=== PATIENT | male | born 1990 | race Two or more races ===

== ENCOUNTER 2022-12-09 09:44 | Outpatient (AMB) | payer OTHER, SELFPAY ==
[2022-12-09 09:53] VITALS: BP 118/78; PULSE 80; O2SAT 98; BMI 32.2
--- NOTE | 2022-12-09 09:53 | MHC.PC.OV ---
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 He also states he has tennis elbow in right arm. 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 [facility] [place] Last office visit/CPE: >5 yrs Acute issue(s): Allergies, Occassional cough, Dry Skin, Tennis Elbow R arm PMHx: Allergies, Mild intermittent Asthma. Infant hernia. SurgHx: Hernia repair FHx: Mom: DM, Allergies. Dad DM. pGM Breast CA. mGF: Cancer unknown source SocHx: Nonsmoker. EtOH 2-4 x a month but 10 drinks at a time. No drugs. [facility] Surgical History (Updated 12/09/22 @ 10:01 by Chantell Lee CMA) History of hernia surgery S/P tonsillectomy [place] teeth extracted Family History (Updated 12/09/22 @ 10:06 by Chantell Lee CMA) Father Diabetes Mother Diabetes Maternal Grandfather Diabetes Advanced dementia Alzheimer disease Mental health disorder Maternal Grandmother Advanced dementia Mental health disorder Paternal Grandmother Cancer Mental health disorder Paternal Grandfather Advanced dementia Alzheimer disease Cancer Mental health disorder Social History (Updated 12/09/22 @ 10:09 by Chantell Lee CMA) Household Members: None Housing: Apartment Alcohol intake: current Patient Tobacco Use Status: Never used Tobacco e-Cigarette/Vaping Use: Never Used Use of substances other than those prescribed or required for medical reasons: No Have you been hit, kicked, punched, or otherwise hurt by someone within the past year? 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 Cognitive needs: No Hearing needs: No Vision needs: Yes (patient wearing glasses) Questionnaire PHQ-9 Over the last 2 weeks, how often have you been bothered by any of the following problems? 1. Little interest or pleasure in doing things: not at all 2. Feeling down, depressed, or hopeless: not at all 3. Trouble falling or staying asleep, or sleeping too much: not at all 4. Feeling tired or having little energy: not at all 5. Poor appetite or overeating: not at all 6. Feeling bad about yourself - or that you are a failure or have let yourself or your family down: not at all 7. Trouble concentrating on things, such as reading the newspaper or watching television: not at all 8. Moving or speaking so slowly that other people could have noticed. Or the opposite - being so fidgety or restless that you have been moving around a lot more than usual: not at all 9. Thoughts that you would be better off or of hurting yourself in some way: not at all Total score: 0 Source: Developed by Drs. Gilberto Garcia, Mirtha Bustos, Van Elias and colleagues, with an educational vanessa from [employer]. Thrive Questionnaire I am a: Patient What is your living situation today?: I have a steady place to live Within the past 12 months, did the food you bought not last and you didn't have the money to get more?: Never true Within the past 12 months, did you worry whether your food would run out before you got money to buy more?: Never true Do you have trouble paying for medicines?: No Do you have trouble getting transportation to medical appointments?: No Do you have trouble paying your heating and electricity bill?: No Do you have trouble taking care of your child, family member or friend?: No Do you have trouble with day-to-day activities such as bathing, preparing meals, shopping, managing finances, etc.?: No Are you currently unemployed and looking for a job?: No Are you interested in more education?: No AUDIT C Alcohol Use Questionnaire (AUDIT-C) 1. How often do you have a drink containing alcohol?: 2-4 times a month 2. How many drinks containing alcohol do you have on a typical day when you are drinking?: 10 or more 3. How often do you have six or more drinks on one occasion?: Monthly Total Score: 8 FREDY-7 AMB Questionnaire FREDY-7 Feeling nervous, anxious, or on edge: 0 = Not at all Not being able to stop or control worryin = Not at all Worrying too much about different things: 0 = Not at all Trouble relaxin = Not at all Being so restless that it is hard to sit still: 0 = Not at all Becoming easily annoyed or irritable: 1 = Several days Feeling afraid as if something awful might happen: 0 = Not at all Total FREDY-7 score (0-4 normal; 5-9 mild; 10-14 moderate; 15-21 severe): 1 Source: Developed by Drs. Gilberto Garcia, Mirtha Bustos, Van Elias and colleagues, with an educational vanessa from [employer]. Review of Systems Const Denies chills, Denies fatigue, Denies fever(s), Denies headache(s) and Denies weakness ENT Denies dizziness and Denies headache(s) Card Denies chest pain, Denies lightheadedness, Denies dyspnea and Denies other (Palpitations) Resp Denies cough, Denies dyspnea, Denies wheezing and Denies other ( shortness of breath) Musc Denies numbness and Denies tingling Neuro Denies dizziness, Denies headache(s), Denies numbness, Denies tingling, Denies paresthesias and Denies weakness Psych Denies anxiety and Denies depression Endo Denies fatigue Aller/Immun Denies wheezing Physical exam (Primary Care) BMI result Body Mass Index 32.2 Tobacco/Smoking Status: Tobacco use Status Tobacco use date assessed 12/09/22 12/09/22 10:00 Patient Tobacco Use Status Never used Tobacco 12/09/22 10:09 e-Cigarette/Vaping Use Never Used 12/09/22 10:09 PHQ-9: PHQ-9 Score PHQ-9: Total score 0 12/09/22 10:13 Const General: no acute distress and well developed Nutritional Appearance: well nourished Orientation/consciousness: patient oriented x3 HENMT Head: Yes normocephalic and Yes atraumatic Eyes General: appearance normal, both eyes and all related structures Pupils: Equal, round and reactive pupils present EOM: EOMs intact bilaterally Resp Effort & Inspection: normal respiratory effort Auscultation: clear to auscultation bilaterally Cardio Rate: regular rate Rhythm: regular rhythm Heart sounds: S1 normal heart sound present, S2 normal heart sound present, no gallops, no murmurs and no rubs Neuro General: patient oriented x3 and gait normal Cranial nerves: Yes Equal, round and reactive pupils present Psych Affect: normal affect Assessment and Plan Assessment & Plan (1) Allergies: Code(s): T78.40XA - Allergy, unspecified, initial encounter Plan: Seasonal allergies and rhinitis as well as a dry skin and asthma; consolation of atopy. Continue Xyzal and Flonase which he gets OTC (2) Asthma: Code(s): J45.909 - Unspecified asthma, uncomplicated Plan: Mild intermittent sickness symptoms which are only triggered when he is sick or has severe allergies Will monitor and he can call me for any symptoms. (3) Dry skin: Code(s): L85.3 - Xerosis cutis Plan: Advised moisturizer after her bathing/washing Can use OTC hydrocortisone for mild flare ups or call for stronger medications if needed. (4) Forearm tendonitis: Code(s): M77.8 - Other enthesopathies, not elsewhere classified Plan: Advised relative rest Ice/heat NSAIDs He can let me know if worsening or not improving. (5) Drinking binge: Code(s): Z78.9 - Other specified health status Plan: Patient notes that he has infrequent episodes of drinking where he might have up to 6 drinks in a night. He notes that he is careful and ?responsible He denies any symptoms or problems from this Advised moderation (6) Laboratory exam ordered as part of routine general medical examination: Code(s): Z00.00 - Encounter for general adult medical examination without abnormal findings Plan: Check labs Orders: Orders Comprehensive [place]. Panel Fast Today Z00.00 - Encounter for general adult medical examination without abnormal findings Lipid Panel Today Z00.00 - Encounter for general adult medical examination without abnormal findings TSH reflex Free T4 Today Z00.00 - Encounter for general adult medical examination without abnormal findings Microalbumin, Random (w Creat) Today I10 - Essential (primary) hypertension UA and rflx microscopic Today Z00.00 - Encounter for general adult medical examination without abnormal findings Coding Level of Care Code New Pt Level 3 (03482) Diagnoses Allergies T78.40XA Asthma J45.909 Dry skin L85.3 Forearm tendonitis M77.8 Drinking binge Z78.9 Laboratory exam ordered as part of routine general medical examination Z00.00
== END 2022-12-09 10:41 | disposition home or self-care (01) ==
PROVIDERS: Visit Provider Family Medicine
DX: T78.40XA Allergy, unspecified, initial encounter (principal); J45.909 Unspecified asthma, uncomplicated; L85.3 Xerosis cutis; M77.8 Other enthesopathies, not elsewhere classified; Z78.9 Other specified health status; Z00.00 Encounter for general adult medical examination without abnormal findings
CPT/HCPCS: 99203

== ENCOUNTER 2023-01-27 13:34 | Outpatient (REF) | payer OTHER, SELFPAY ==
[2023-01-27 14:20] LABS: Appearance Urine Clear; Color Urine Yellow; Glucose Urine UA Negative (Negative); Leukocyte Esterase Urine Negative (Negative); Nitrite Urine Negative (Negative); Specific Gravity - Urine <= 1.005 (1.005-1.025); Urine Blood Negative (Negative); Urine Ketones Negative (Negative); Urine Protein Negative (Neg-Trace)
[2023-01-27 15:05] LABS: Creatinine Urine 30.88 mg/dL; Microalbumin Urine < 5.0 mg/L
[2023-01-27 16:10] LABS: Alanine Aminotransferase 28 U/L (0-40); Albumin Level 4.3 g/dL (3.5-5.0); Alkaline Phosphatase 52 U/L (39-117); Anion Gap 11 (12-20); Aspartate Amino Transferase 24 U/L (5-37); Bilirubin Total 0.9 mg/dL (0.0-1.0); Blood Urea Nitrogen 10 mg/dL (9-16); Calcium 9.2 mg/dL (8.4-10.2); Carbon Dioxide 25 mmol/L (22-29); Chloride 106 mmol/L (96-108); Cholesterol 252 mg/dL (<200); Estimated Glomerular Filt Rate > 60; Glucose Fasting 88 mg/dL (60-99); HDL Cholesterol 47 mg/dL (>40); LDL Cholesterol Calculated 176 mg/dL (<100); Potassium 3.7 mmol/L (3.3-5.1); Sodium 138 mmol/L (135-145); Total Protein 7.5 g/dL (6.5-8.0); Triglycerides 145 mg/dL (<150)
== END 2023-01-27 13:35 | disposition home or self-care (01) ==
LOC: HO.LAB 13:34
PROVIDERS: PCP Family Medicine; Visit Provider Family Medicine
DX: Z00.00 Encounter for general adult medical examination without abnormal findings (principal); I10 Essential (primary) hypertension
CPT/HCPCS: 36415; 80053; 80061; 81003; 82043; 82570; 84443

== ENCOUNTER 2023-02-16 13:51 | Outpatient (AMB) | payer OTHER, SELFPAY ==
--- NOTE | 2023-02-16 13:56 | MHC.PC.OV ---
Vital Signs 02/16/23 13:57 Height 6 ft 3 in Weight 269 lb 2 oz BMI 33.6 BP 112/62 Blood Pressure Location Lt brachial Position Sitting Pulse 78 Pulse Source Pulse Oximeter Pulse Oximetry (%) 98 Oxygen Delivery Method Room Air Intake Visit Reasons: CPE with f/u labs and health maintenance Intake Note: Patient is here for physical with follow up labs and health maintenance. Allergies No Known Allergies Allergy (Verified 02/16/23 14:00) Tobacco use date assessed: 02/16/23 Dental Screening Dental Screen Date: 02/16/23 Did you have a dental visit in the last 12 months?: Yes Did you have a dental problem in the last 6 months where you did not have access to dental care?: No Was dental information given to patient?: Patient has dentist HPI CPE with f/u labs and health maintenance HPI Details Patient presents for CPE with follow-up labs Reviewed labs with patient: Lipids are elevated His other labs are okay He also notes some difficulty going to sleep. He is going to bed around 11:30 or 12 each night. He is is melatonin to help fall asleep but it is not helping lately. Exercising daily but not too close to bedtime. [facility] Surgical History S/P tonsillectomy History of hernia surgery [place] teeth extracted Family History Father Diabetes Mother Diabetes Maternal Grandfather Diabetes Advanced dementia Alzheimer disease Mental health disorder Maternal Grandmother Advanced dementia Mental health disorder Paternal Grandmother Cancer Mental health disorder Paternal Grandfather Advanced dementia Alzheimer disease Cancer Mental health disorder Social History Household Members: None Housing: Apartment Alcohol intake: current Patient Tobacco Use Status: Never used Tobacco e-Cigarette/Vaping Use: Never Used service: No Current occupational status: employed 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 Cognitive needs: No Hearing needs: No Vision needs: Yes (patient wearing glasses) Review of Systems Const Denies chills, Denies fatigue, Denies fever(s), Denies headache(s) and Denies weakness Eyes Denies change in vision ENT Denies dizziness, Denies headache(s), Denies hearing loss, Denies nasal congestion, Denies sinus pain, Denies sinus pressure and Denies sore throat Card Denies chest pain, Denies lightheadedness, Denies dyspnea and Denies other (palpitations) Resp Denies cough, Denies dyspnea and Denies wheezing GI Denies abdominal pain, Denies melena, Denies hematochezia, Denies change in bowel habits, Denies dyspepsia and Denies nausea Denies hematuria and Denies dysuria Musc Denies abnormal gait, Denies myalgias, Denies arthralgias, Denies numbness and Denies tingling Skin/Breast Denies rash, Denies unusual bruising and Denies wounds Neuro Denies abnormal gait, Denies dizziness, Denies headache(s), Denies memory loss, Denies numbness, Denies Sensory deficit (Neuro), Denies tingling and Denies weakness Psych Denies anxiety, Denies depression and Denies memory loss Endo Denies cold intolerance, Denies fatigue, Denies heat intolerance, Denies polydipsia and Denies polyuria Mike/Lymph Denies easy bleeding and Denies easy bruising Aller/Immun Denies wheezing Physical exam (Primary Care) Vital Signs: Last Vital Signs Pulse 78 02/16/23 13:57 BP 112/62 02/16/23 13:57 Pulse Ox 98 02/16/23 13:57 Oxygen Delivery Method Room Air 02/16/23 13:57 BMI result Body Mass Index 33.6 Tobacco/Smoking Status: Tobacco use Status Tobacco use date assessed 02/16/23 02/16/23 14:01 Patient Tobacco Use Status Never used Tobacco 02/16/23 14:01 e-Cigarette/Vaping Use Never Used 02/16/23 14:01 Const General: no acute distress, well developed, alert and awake Nutritional Appearance: well nourished Orientation/consciousness: patient oriented x3 HENMT Head: Yes normocephalic and Yes atraumatic Ears: hearing grossly normal bilaterally and TM's normal bilaterally General nose exam: Normal external nose present and Normal nares present Mouth: Normal oral and palatal mucosa present and moist mucous membranes Teeth and gingiva: dentition normal Throat: Yes posterior oropharynx normal Eyes Pupils: Equal, round and reactive pupils present and Pupil accommodation reflex normal EOM: EOMs intact bilaterally Neck Neck: Yes normal visual inspection, Yes no lymphadenopathy and Yes trachea midline Thyroid: Thyroid normal Carotids: no bruits Lymphatic: no lymphadenopathy noted Chest Chest palpation & inspection: normal inspection of the chest Resp Effort & Inspection: normal respiratory effort Auscultation: clear to auscultation bilaterally Cardio Rate: regular rate Rhythm: regular rhythm Heart sounds: S1 normal heart sound present, S2 normal heart sound present, no gallops, no murmurs and no rubs Bruits: no abdominal aortic bruits and no carotid bruits GI Palpation (GI): No Abdominal aortic bruit present, Soft to palpation, nontender, No hepatosplenomegaly present and No Rebound tenderness present Auscultation: normal bowel sounds General: Yes no CVA tenderness Back/Spine/Pelvis Back: no CVA tenderness Cervical Spine: cervical ROM normal and No Cervical spine tenderness Thoracic/Lumbar Spine: thoraco-lumbar ROM normal, No pain with thoraco-lumbar ROM, No thoracic spinal tenderness and No lumbar spinal tenderness Skin Lesions: no lesions Rashes: no rashes Trauma: no lacerations or abrasions Wounds: no wounds Nails: normal Neuro General: patient oriented x3, gait normal and CN's II-XI intact bilaterally Cranial nerves: Yes Equal, round and reactive pupils present Cognition (Neuro): normal cognition Gait exam (Neuro): Normal gait present Motor exam (neuro): 5/5 motor strength present throughout Sensory Exam: No Sensory deficit (Neuro) Deep tendon reflexes (DTR's): Right patellar reflex intensity grade: 2+ and Left patellar reflex intensity grade: 2+ Extrem General: Yes normal to inspection and No edema Psych Appearance: grossly normal Affect: normal affect Attitude: cooperative Thought process: Normal thought process present Assessment and Plan Assessment & Plan (1) Adult general medical exam: Code(s): Z00.00 - Encounter for general adult medical examination without abnormal findings Plan: 33-year-old male presents for complete physical exam Encouraged healthy diet with active lifestyle and plenty of exercise (2) Hyperlipidemia: Code(s): E78.5 - Hyperlipidemia, unspecified Plan: LDL cholesterol is too high. Advised diet lower in saturated fats and cholesterol, weight loss, exercise Will repeat in 3 months. If not significantly improved, we discussed using medication. (3) Difficulty sleeping: Code(s): G47.9 - Sleep disorder, unspecified Plan: Difficulty initiating sleep. Denies holding breath in sleep or gasping. Denies daytime sleepiness Advised he work at sleep hygiene techniques. Advised pulling back his bedtime closer to 10:00 o'clock Do not use melatonin every day. Can try using to help set bedtime earlier however. Discussed minimizing screen time near bedtime and avoid exercising near bedtime. Already exercising in his mornings each day. Orders: Orders Lipid Panel Today E78.5 - Hyperlipidemia, unspecified, Z00.00 - Encounter for general adult medical examination without abnormal findings Basic Metabolic Panel Fasting Today E78.5 - Hyperlipidemia, unspecified Coding Level of Care Code Est Pt Prev Care 18-39y(09100) Diagnoses Adult general medical exam Z00.00 Hyperlipidemia E78.5 Difficulty sleeping G47.9
[2023-02-16 13:57] VITALS: BP 112/62; PULSE 78; O2SAT 98; BMI 33.6
== END 2023-02-16 14:33 | disposition home or self-care (01) ==
PROVIDERS: PCP Family Medicine; Visit Provider Family Medicine
DX: Z00.00 Encounter for general adult medical examination without abnormal findings (principal); E78.5 Hyperlipidemia, unspecified; G47.9 Sleep disorder, unspecified
CPT/HCPCS: 99395

== ENCOUNTER 2023-05-11 06:25 | Outpatient (REF) | payer OTHER, SELFPAY ==
[2023-05-11 07:40] LABS: Anion Gap 14 (12-20); Blood Urea Nitrogen 19 mg/dL (9-16); Calcium 9.4 mg/dL (8.4-10.2); Carbon Dioxide 23 mmol/L (22-29); Chloride 105 mmol/L (96-108); Cholesterol 251 mg/dL (<200); Estimated Glomerular Filt Rate > 60; Glucose Fasting 95 mg/dL (60-99); HDL Cholesterol 41 mg/dL (>40); LDL Cholesterol Calculated 143 mg/dL (<100); Potassium 3.6 mmol/L (3.3-5.1); Sodium 138 mmol/L (135-145); Triglycerides 339 mg/dL (<150)
== END 2023-05-11 06:26 | disposition home or self-care (01) ==
LOC: HO.LAB 06:25
PROVIDERS: PCP Family Medicine; Visit Provider Family Medicine
DX: Z00.00 Encounter for general adult medical examination without abnormal findings (principal); E78.5 Hyperlipidemia, unspecified
CPT/HCPCS: 36415; 80048; 80061

== ENCOUNTER 2023-05-14 13:17 | Outpatient (AMB) | payer OTHER, SELFPAY ==
--- NOTE | 2023-05-14 13:24 | MHC.PC.OV ---
Vital Signs 05/14/23 13:26 Height 6 ft 3 in Weight 270 lb 2 oz BMI 33.8 BP 118/74 Blood Pressure Location Rt brachial Position Sitting Pulse 78 Pulse Source Pulse Oximeter Pulse Oximetry (%) 97 Oxygen Delivery Method Room Air Intake Visit Reasons: 3 mos Hyperlipidemia Intake Note: Patient is here for follow up on hyperlipidemia. Allergies No Known Allergies Allergy (Verified 05/14/23 13:28) Tobacco use date assessed: 05/14/23 HPI 3 mos Hyperlipidemia HPI Details 33 y/o male presents to f/u hyperlipidemia. Labs were drawn 05/11/23. Reviewed labs with pt. Triglycerides worsened from 145 to 339. TC 251. LDL improved from 176 to 143. HDL 41. PFSH Surgical History S/P tonsillectomy History of hernia surgery [place] teeth extracted Family History Father Diabetes Mother Diabetes Maternal Grandfather Diabetes Advanced dementia Alzheimer disease Mental health disorder Maternal Grandmother Advanced dementia Mental health disorder Paternal Grandmother Cancer Mental health disorder Paternal Grandfather Advanced dementia Alzheimer disease Cancer Mental health disorder Social History Household Members: None Housing: Apartment Alcohol intake: current Patient Tobacco Use Status: Never used Tobacco e-Cigarette/Vaping Use: Never Used service: No Current occupational status: employed 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 Cognitive needs: No Hearing needs: No Vision needs: Yes (patient wearing glasses) Review of Systems Const Denies chills, Denies fatigue, Denies fever(s), Denies headache(s) and Denies weakness ENT Denies dizziness and Denies headache(s) Card Denies dyspnea Resp Denies cough, Denies dyspnea, Denies wheezing and Denies other (shortness of breath) Musc Denies numbness and Denies tingling Neuro Denies dizziness, Denies headache(s), Denies numbness, Denies tingling and Denies weakness Psych Denies anxiety and Denies depression Endo Denies fatigue Aller/Immun Denies wheezing Physical exam (Primary Care) Vital Signs: Last Vital Signs Pulse 78 05/14/23 13:26 BP 118/74 05/14/23 13:26 Pulse Ox 97 12/21/23 13:26 Oxygen Delivery Method Room Air 05/14/23 13:26 BMI result Body Mass Index 33.8 Tobacco/Smoking Status: Tobacco use Status Tobacco use date assessed 05/14/23 05/14/23 13:28 Patient Tobacco Use Status Never used Tobacco 05/14/23 13:26 e-Cigarette/Vaping Use Never Used 05/14/23 13:26 Const General: well developed; No acute distress Nutritional Appearance: well nourished Orientation/consciousness: patient oriented x3 HENMT Head: Yes normocephalic and Yes atraumatic Eyes General: appearance normal, both eyes and all related structures Pupils: Equal, round and reactive pupils present EOM: EOMs intact bilaterally Resp Effort & Inspection: normal respiratory effort Neuro General: patient oriented x3 and gait normal Cranial nerves: Yes Equal, round and reactive pupils present Psych Affect: normal affect Assessment and Plan Assessment & Plan (1) Hyperlipidemia: Code(s): E78.5 - Hyperlipidemia, unspecified Plan: Significant?improvements?in?LDL?cholesterol,?however?he?has?had?a?significant?increase?in?his?triglycerides?concomitantly. 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 Panel Fast Today E78.5 - Hyperlipidemia, unspecified, Z00.00 - Encounter for general adult medical examination without abnormal findings Lipid Panel Today E78.5 - Hyperlipidemia, unspecified, Z00.00 - Encounter for general adult medical examination without abnormal findings Coding Level of Care Code Est Pt Level 3 (09311) Diagnoses Hyperlipidemia E78.5
[2023-05-14 13:26] VITALS: BP 118/74; PULSE 78; O2SAT 97; BMI 33.8
== END 2023-05-14 13:55 | disposition home or self-care (01) ==
PROVIDERS: PCP Family Medicine; Visit Provider Family Medicine
DX: E78.5 Hyperlipidemia, unspecified (principal)
CPT/HCPCS: 99213